=== PATIENT | male | born 1990 | race African-American/Black ===

== ENCOUNTER 2018-03-10 20:11 | Emergency (ER) | payer OTHER ==
[~2018-03-10] VITALS: Ht 177.8 cm; Wt 96.2 kg
[2018-03-10 20:29] VITALS: BP 158/93
[2018-03-10] MEDS ORDERED: MOBIC15 MG PO (20:36)
[2018-03-10] MEDS ORDERED: VALIUM5 MG PO (20:36)
== END 2018-03-10 20:44 | disposition home or self-care (01) ==
LOC: ER 20:11
DX: S16.1XXA Strain of muscle, fascia and tendon at neck level, initial encounter (principal); V89.2XXA Person injured in unspecified motor-vehicle accident, traffic, initial encounter; Y93.89 Activity, other specified; Y92.89 Other specified places as the place of occurrence of the external cause; Y99.8 Other external cause status